=== PATIENT | male | born 1960 | race Caucasian/White ===

== ENCOUNTER 2023-08-08 16:19 | Emergency (ER) | payer BC, OTHER ==
[~2023-08-08] VITALS: Ht 177.8 cm; Wt 95.3 kg
[2023-08-08 16:56] VITALS: O2SAT 97
[2023-08-08] MEDS ORDERED: LIDOCAINE HCL 1% 20 ML VIAL ONE ×2 (17:56→18:14)
[2023-08-08] MEDS ORDERED: TDAP DIPH,PERTUSS,TET VAC/PF 0.5 ML DISP.SYRIN IM ONE ×2 (18:00→18:15)
[2023-08-08] MEDS ORDERED: NEOMY/BACITRA/POLYMYXIN B OINT UD PACKET TP ONE ×2 (18:00→18:15)
[2023-08-08] MEDS ORDERED: LIDOCAINE HCL 1% 20 ML VIAL TP ONE (18:00)
[2023-08-08] MEDS ORDERED: AMOX-430 PO (18:02)
[2023-08-08] MEDS ORDERED: OXYC-128 PO (18:02)
[2023-08-08] MEDS ORDERED: HYDROCODONE/APAP 5-325MG TABLET PO ONE (18:15)
[2023-08-08] MEDS ORDERED: AMOXICILLIN-CLAVUL 875-125MG TABLET PO ONE (18:15)
[2023-08-08] MEDS ORDERED: AMOXICILLIN-CLAVUL 875-125MG TABLET ONE (18:16)
[2023-08-08] MEDS ORDERED: HYDROCODONE/APAP 5-325MG TABLET ONE (18:16)
== END 2023-08-08 18:38 | disposition home or self-care (01) ==
LOC: ER 16:22
DX: S61.212A Laceration without foreign body of right middle finger without damage to nail, initial encounter (principal); S51.811A Laceration without foreign body of right forearm, initial encounter; S51.851A Open bite of right forearm, initial encounter; Z88.1 Allergy status to other antibiotic agents; Z79.2 Long term (current) use of antibiotics; Z79.899 Other long term (current) drug therapy; W54.0XXA Bitten by dog, initial encounter; Y93.89 Activity, other specified; Y92.89 Other specified places as the place of occurrence of the external cause; Y99.8 Other external cause status
CPT/HCPCS: 12002; 90471; 90715; 99284; J3490; A4606; A4663